=== PATIENT | female | born 1985 | race Hispanic/Latino ===

== ENCOUNTER 2021-02-22 19:09 | Emergency (ER) | payer MEDICAID | END 2021-02-22 19:35 | disposition left against medical advice (07) | LOC: EDH 19:09 | DX: F41.9 Anxiety disorder, unspecified (principal); Z53.21 Procedure and treatment not carried out due to patient leaving prior to being seen by health care provider ==

== ENCOUNTER 2024-10-15 12:36 | Emergency (ER) | payer MEDICAID ==
[~2024-10-15] VITALS: Ht 157.5 cm; Wt 99.8 kg
[2024-10-15 13:16] LABS: APPEARANCE,URINE CLEAR (CLEAR); BILIRUBIN,URINE NEGATIVE (NEGATIVE); COLOR,URINE LIGHT-YELLOW (YELLOW); GLUCOSE, URINE (UA) NEGATIVE (NEGATIVE); KETONES,URINE NEGATIVE (NEGATIVE); LEUKOCYTE ESTERASE ,URINE NEGATIVE Leu/uL (NEGATIVE); NITRATE,URINE NEGATIVE (NEGATIVE); OCCULT BLOOD,URINE NEGATIVE (NEGATIVE); PH,URINE 6.5 (5.0-8.0); PROTEIN,URINE NEGATIVE (NEGATIVE); UROBILINOGEN,URINE 3 mg/dL (0.2-1.0)
[2024-10-15 13:21] LABS: ADD UA MICROSCOPIC YES
[2024-10-15 13:27] LABS: BACTERIA,URINE RARE /HPF (None Seen); RBC,URINE 0-1 /HPF (0-1); SQUAMOUS EPITHELIAL CELL,UR RARE /HPF (0-2)
[2024-10-15 13:52] LABS: BASOPHILS # (AUTO) 0.06 K/uL (0.00-0.20); BASOPHILS % (AUTO) 0.5 % (0.0-5.0); EOSINOPHILS # (AUTO) 0.18 K/uL (0.00-0.70); EOSINOPHILS % (AUTO) 1.4 % (0.0-8.0); IMMATURE GRANULOCYTE ABSOLUTE 0.12 K/uL (0-1); LYMPHOCYTES # (AUTO) 2.3 K/uL (1.0-4.8); LYMPHOCYTES % (AUTO) 17.6 % (21.0-51.0); MEAN CORPUSCULAR HEMOGLOBIN 28.8 pg (27.0-33.0); MEAN CORPUSCULAR HGB CONC 31.8 g/dL (32.0-36.0); MEAN CORPUSCULAR VOLUME 90.7 fL (79-99); MONOCYTES # (AUTO) 0.6 K/uL (0.1-1.0); MONOCYTES % (AUTO) 4.7 % (3.0-13.0); NEUTROPHILS # (AUTO) 9.6 K/uL (1.8-7.7); NEUTROPHILS % (AUTO) 74.9 % (40.0-77.0); PLATELET COUNT (AUTO) 466 K/uL (130-400); RED CELL DISTRIBUTION WIDTH 13.4 % (11.0-15.5); WHITE BLOOD COUNT (AUTO) 12.9 K/uL (4.8-10.8)
[2024-10-15 14:02] LABS: CREATININE 0.7 mg/dL (0.5-1.0); POTASSIUM 3.9 mmol/L (3.5-5.1)
[2024-10-15 14:08] LABS: ALBUMIN 3.2 g/dL (3.5-5.0); BILIRUBIN,DIRECT 0.1 mg/dL (0.0-0.3); BILIRUBIN,TOTAL 0.2 mg/dL (0.2-1.0); TOTAL PROTEIN, SERUM 8.3 g/dL (6.0-8.3)
[2024-10-15] MEDS: MAGNESIUM CITRATE 296 ML SOLUTION PO ONE (15:15)
[2024-10-15] MEDS: polyETHYLene GLYCol 3350 17 GM POWD.PACK PO ONE (15:17)
--- NOTE | 2024-10-15 15:43 | ERN ---
General Chief Complaint: Abdominal Pain Stated Complaint: ABD PAIN Time Seen by MD: 13:06 Time Seen by Midlevel: 13:06 Source: patient History of Present Illness Initial Comments The patient is a morbidly obese 39-year-old female presenting to the emergency department for evaluation of lower abdominal discomfort that started last week. She does report having possible food poisoning eight days ago. Since then she has been unable to have a normal bowel movement. She states she has been constipated. She denies pain but states she has a constant pressure in her lower abdomen. Allergies: Coded Allergies: No Known Drug Allergies (Unverified Allergy, Unknown, 03/01/21) Home Meds No Active Prescriptions or Reported Meds Past Medical History Past Medical History: Diabetes-Type II Past Surgical History: Tonsillectomy, Cholecystectomy, BTL, ROS Dictation CONSTITUTIONAL: Negative except for HPI HEAD/FACE: Negative except for HPI EENT: Negative except for HPI RESPIRATORY: Negative except for HPI GASTROINTESTINAL/ABDOMINAL: Negative except for HPI GENITOURINARY: Negative except for HPI MUSCULOSKELETAL: Negative except for HPI INTEGUMENTARY: Negative except for HPI NEUROLOGICAL/PSYCH: Negative except for HPI HEMATOLOGIC/LYMPHATIC: Negative except for HPI All Systems Negative, Except as noted above. 13 point review of systems assessed and all negative except for above. Physical Exam Physical Exam Dictation Vital Signs reviewed General Appearance: Alert, oriented x 3, no acute distress, well developed, nourished. Head and Face: non-traumatic. Eyes: PERRL, pink conjunctivas, eyelid no trauma, anterior chamber with arcus senilis. Ears: Pinnas intact and no signs of trauma or erythema ear canals clear and no discharge TM no erythema Nose: No discharge, no bleeding. Oropharynx: Mouth normal, tongue pink, pharynx clear,no erythema, tonsils no exudates, no abscesses noted, mucous membrane moist Neck: Supple, non-tender, no thyromegaly, no masses, no JVD, no bruits Breast:Deferred Chest:No tenderness, no crepitus, no paradoxical movement, no retractions Lungs:Clear, well-ventilated, symmetric, no rales, no wheezing, no rhonchi, no stridor, good breath sounds bilaterally Heart: Regular rate, regular rhythm, no murmur, no gallops Vascular: no peripheral edema, Abdomen: Soft, positive bowel sounds, nondistended, no guarding, nontender, no rebound, no masses no hepatomegaly, no splenomegaly, no Ramos's sign, no hernias. Rectal: Deferred Genital: Deferred Neurological: Normal speech, motor function intact, sensory function intact Musculoskeletal: Neck nontender, full range of motion, back nontender, full range of motion, Extremities: nontender, full range of motion Skin: Color pink, dry, no turgor, no rash, no lacerations, no abrasions, no contusions. Lymphatic: Deferred Results Laboratory and Microbiology Lab and Micro Result Laboratory Tests Test 10/15/24 13:06 10/15/24 13:15 Urine Color LIGHT-YELLOW (YELLOW) Urine Appearance CLEAR (CLEAR) Urine pH 6.5 (5.0-8.0) Urine Specific [place] 1.010 (1.001-1.031) Urine Protein NEGATIVE mg/dL (NEGATIVE) Urine Glucose (UA) NEGATIVE mg/dL (NEGATIVE) Urine Ketones NEGATIVE mg/dL (NEGATIVE) Urine Occult Blood NEGATIVE (NEGATIVE) Urine Nitrate NEGATIVE (NEGATIVE) Urine Bilirubin NEGATIVE mg/dL (NEGATIVE) Urine Urobilinogen 3 mg/dL (0.2-1.0) H Urine Leukocyte Esterase NEGATIVE Jeramy/uL Urine RBC 0-1 /HPF (0-1) Urine WBC None /HPF (0-1) Urine Squamous Epithelial Cells RARE /HPF (0-2) Urine Bacteria RARE /HPF (None Seen) White Blood Count 12.9 K/uL (4.8-10.8) H Red Blood Count 4.30 MIL/uL (4.00-5.50) Hemoglobin 12.4 g/dL (12.0-16.0) Hematocrit 39.0 % (36-48) Mean Corpuscular Volume 90.7 fL (79-99) Mean Corpuscular Hemoglobin 28.8 pg (27.0-33.0) Mean Corpuscular Hemoglobin Concent 31.8 g/dL (32.0-36.0) L Red Cell Distribution Width 13.4 % (11.0-15.5) Platelet Count 466 K/uL (130-400) H Mean Platelet Volume 9.8 fL (7.5-10.5) Immature Granulocyte % (Auto) 0.9 % (0-1) Neutrophils (%) (Auto) 74.9 % (40.0-77.0) Lymphocytes (%) (Auto) 17.6 % (21.0-51.0) L Monocytes (%) (Auto) 4.7 % (3.0-13.0) Eosinophils (%) (Auto) 1.4 % (0.0-8.0) Basophils (%) (Auto) 0.5 % (0.0-5.0) Neutrophils # (Auto) 9.6 K/uL (1.8-7.7) H Lymphocytes # (Auto) 2.3 K/uL (1.0-4.8) Monocytes # (Auto) 0.6 K/uL (0.1-1.0) Eosinophils # (Auto) 0.18 K/uL (0.00-0.70) Basophils # (Auto) 0.06 K/uL (0.00-0.20) Absolute Immature Granulocyte (auto 0.12 K/uL (0-1) Nucleated Red Blood Cells 0.0 % (0.0-0.19) Sodium Level 140 mmol/L (136-145) Potassium Level 3.9 mmol/L (3.5-5.1) Chloride Level 103 mmol/L (101-111) Carbon Dioxide Level 30 mmol/L (21-32) Blood Urea Nitrogen 6 mg/dL (7-18) L Creatinine 0.7 mg/dL (0.5-1.0) Glomerular Filtration Rate Calc 114 mL/min (>90) Random Glucose 118 mg/dL (70-105) H Total Calcium 8.9 mg/dL (8.5-10.1) Total Bilirubin 0.2 mg/dL (0.2-1.0) Direct Bilirubin 0.1 mg/dL (0.0-0.3) Aspartate Amino Transf (AST/SGOT) 32 U/L (10-37) Alanine Aminotransferase (ALT/SGPT) 57 U/L (12-78) Alkaline Phosphatase 114 U/L (50-136) Total Protein 8.3 g/dL (6.0-8.3) Albumin 3.2 g/dL (3.5-5.0) L Lipase 15 U/L (16-77) L Labs Reviewed?: Yes MDM MDM: The patient is a morbidly obese 39-year-old female presenting to the emergency department for evaluation of lower abdominal discomfort that started last week. She does report having possible food poisoning eight days ago. Since then she has been unable to have a normal bowel movement. She states she has been constipated. She denies pain but states she has a constant pressure in her lower abdomen. On physical examination the patient is in no acute distress. Initial vital signs are stable. Patient is afebrile and nontoxic appearing. Abdominal examination is unremarkable. There was no tenderness, rebound, or guarding. CBC shows no leukocytosis. CHEMISTRIES UNREMARKABLE. PATIENT WAS GIVEN Mag citrate in the emergency department and will be discharged home after she requested to be discharged. Differential diagnosis: Constipation, urinary tract infection, pancreatitis There are no social concerns with this patient. Prescription drug management Prescriptions will include: None Medical management and examination interpretation discussions were had by me with other qualified healthcare professionals as indicated for the patient's care. ED Course Orders Procedure Category Date Status Time Urinalysis Profile LAB 10/15/24 Complete 12:45 Cbc With Differential LAB 10/15/24 Complete 12:45 Basic Metabolic Panel LAB 10/15/24 Complete 12:45 Hepatic Function Panel LAB 10/15/24 Complete 13:10 Lipase LAB 10/15/24 Complete 13:10 Polyethylene Glycol PHA 10/15/24 Complete 3350 (Miralax 3350 1 15:30 Magnesium Citrate PHA 10/15/24 Complete (Magnesium Citrate) 15:30 Current Medications Medications (Trade) Dose Ordered Sig/Michael Route PRN Reason Start Time Stop Time Status Last Admin Dose Admin Magnesium Citrate (Magnesium Citrate) 296 ml ONCE ONCE PO 10/15/24 15:30 10/15/24 15:31 DC 10/15/24 15:15 Polyethylene Glycol (MIRalax 3350 17 GM POWD.PACK) 17 gm ONCE ONCE PO 10/15/24 15:30 10/15/24 15:31 DC Vital Signs Date Time Temp Pulse Resp B/P (MAP) Pulse Ox O2 Delivery O2 Flow Rate FiO2 10/15/24 14:06 74 18 133/71 98 Room Air* 0 21 10/15/24 12:38 97.3 82 16 139/87 98 0 DX & DISP Disposition: Discharge Departure Impression: Primary Impression: Lower abdominal pain, unspecified Condition: Stable Scripts No Active Prescriptions or Reported Meds Additional Instructions: Your blood work today is unremarkable. You are not anemic. Your electrolytes are normal. Your lipase level was normal which rules out acute pancreatitis. Your urinalysis does not show any evidence of infection. Your liver function tests are normal. Please follow up with your primary care doctor in 2-3 days for repeat evaluation. Referrals: SELF,REFERRAL (PCP) I have reviewed the case, and I agree with, Diagnosis and Plan I performed the substantive portion of the visit. I have reviewed and personally made and approve the management plan that is documented in the note by myself or the NICK. I acknowledge for responsibility for the patient's management plan. JOSE BERMEO October 15, 2024 15:43
[2024-10-15 15:50] VITALS: BP 124/71; PULSE 71; RESP 18; TEMP 97.5; O2SAT 98
== END 2024-10-15 15:54 | disposition home or self-care (01) ==
LOC: EDH 12:36
DX: R10.30 Lower abdominal pain, unspecified (principal); E11.9 Type 2 diabetes mellitus without complications; E66.01 Morbid (severe) obesity due to excess calories; Z90.49 Acquired absence of other specified parts of digestive tract; Z90.89 Acquired absence of other organs; Z98.51 Tubal ligation status
CPT/HCPCS: 36415; 80048; 80076; 81001; 83690; 85025; 99283